=== PATIENT | female | born 1955 | race Caucasian/White ===

== ENCOUNTER 2018-03-03 12:08 | Day surgery (SDC) | END 2018-03-03 16:06 | disposition home or self-care (01) ==

== ENCOUNTER → 2018-03-24 | Outpatient (CLI) | END | disposition home or self-care (01) ==

== ENCOUNTER 2018-07-08 11:42 | Emergency (ER) | payer OTHER ==
[~2018-07-08] VITALS: Wt 70.0 kg
[~2018-07-08 11:42] MED LIST: AMIT50TA3 PO; GABA-526 PO; INSU100C SQ; INSU100I33 SC; LIPA1CAP4 PO; LORAZEPAM PO; ONDA4TAB95 PO; OXCA150T43 PO; TRAZ-111 PO; ZOLP10TA5 PO; [UNRECOGNIZED DRUG - OTHER]
[2018-07-08] MEDS ORDERED: HYDROmorphONE 1 MG/ML SYG IV STA (12:32)
[2018-07-08] MEDS ORDERED: SOD CHLORIDE 0.9% 1,000 ML IV STA (12:32)
--- NOTE | 2018-07-08 12:52 | ERD ---
ER Documentation Chief Complaint Chief Complaint AP, HAS HX PANCREATITIS,SEIZURE X 2 IN MOS, ON KEPPRA HPI 62-year-old female with a history of CRPS, diabetes type 1, chronic pancreatitis, hypertension, GERD, seizures presenting to the ER complaining of generalized body pain that is not controlled with her home morphine and oxycod one. She states that she recently had blood work done by her primary care doctor that showed abnormal results. Her doctor told her that it was probably better if she went to the hospital to address the results. Patient does not have any new complaints today. She states that she has chronic pain that is not well controlled. She complains of confusion and poorly controlled diabetes. 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 She also has a GI doctor that she sees for her chronic pancreatitis and GERD issues. However she feels that her primary care doctor is not coordinating her care with these doctors appropriately. She was also told she had low platelets which has been g oing on for quite some time but she has not been referred to a hammer heater. Her labs that were done recently show hyperglycemia with elevated A1c as well as thrombocytopenia with platelets 124. ROS All systems reviewed and are negative except as per history of present illness. Medications Home Meds Reported Medications Morphine Sulfate* (Ms Contin*) 15 Mg Tablet.sa, 15 MG PO Q12, TAB 07/08/18 Insulin Lispro (Humalog Kwikpen) 200 Unit/1 Ml Insuln.pen, 6 UNIT SQ ACHS H, EA 07/08/18 Zolpidem Tartrate* (Zolpidem Tartrate*) 10 Mg Tablet, 12.5 MG PO QHS PRN for INSOMNIA, #30 TAB 03/03/18 Trazodone Hcl* (Trazodone Hcl*) 50 Mg Tablet, 25 MG PO QHS, #30 TAB 03/03/18 Oxcarbazepine* (Oxcarbazepine*) 150 Mg Tablet, 150 MG PO BID, TAB 03/03/18 Ondansetron Hcl* (Ondansetron Hcl*) 4 Mg Tablet, 4 MG PO Q4H PRN for NAUSEA AND OR VOMITING, TAB 03/03/18 Gabapentin* (Gabapentin*) 600 Mg Tablet, 600 MG PO BID, #60 TAB 03/03/18 Mpbpxk-Yxiyiqcd-Swxexsr* (Allison DR* 12,000) 12,000 L-38,000-60,000 Unit Capsul e.dr, 1 CAP PO WITH MEALS, CAP 03/03/18 Insulin Glargine,Hum.rec.anlog (Basaglar Kwikpen U-100) 100 Unit/1 Ml Insuln.pen, 25 UNIT SC QAM, EA 03/03/18 Amitriptyline Hcl* (Amitriptyline Hcl*) 50 Mg Tablet, 50 MG PO QHS, #30 TAB 03/03/18 Discontinued Reported Medications [Morphin Sulfate] No Conflict Check, 20 MG 03/03/18 [Lorazepam] No Conflict Check, PO 03/03/18 Insulin Lispro (Humalog) 100 Unit/1 Ml Cartridge, 100 UNIT SQ, EA 03/03/18 Allergies Allergies: Coded Allergies: No Known Allergy (Unverified , 07/08/18) PMhx/Soc History of Surgery: Yes (CHOLECYSTECTOMY, CSECTION, 2/3 PANCREAS REMOVAL) Anesthesia Reaction: No Hx Neurological Disorder: Yes (SZ) Hx Respiratory Disorders: No Hx Cardiac Disorders: Yes (HTN) Hx Psychiatric Problems: Yes (INSOMNIA, ANXIETY, DEPRESSION) Hx Miscellaneous Medical Probl: Yes (DM TYPE I, CRPS) Hx Alcohol Use: No Hx Substance Use: No Hx Tobacco Use: No Smoking Status: Never smoker FmHx Family History: No diabetes Physical Exam Vitals Vital Signs Date Temp Pulse Resp B/P (MAP) Pulse Ox O2 O2 Flow FiO2 Time Delivery Rate 07/08/18 97.9 64 16 159/77 99 Room Air 14:55 (104) 07/08/18 97.9 66 16 167/85 99 Room Air 13:54 (112) 07/08/18 97.9 75 18 211/90 99 11:43 (130) Physical Exam Const: No acute distress, nontoxic, well-appearing Head: Atraumatic Eyes: Normal Conjunctiva ENT: Normal External Ears, Nose and Mouth. Neck: Full range of motion. No meningismus. Resp: Clear to auscultation bilaterally Cardio: Regular rate and rhythm, no murmurs. 2+ distal pulses in all 4 extremities Abd: Upper abdominal surgical scar noted, well-healed. Soft, non tender, non distended. Normal bowel sounds Skin: No petechiae or rashes Back: No midline or flank tenderness Ext: No cyanosis, or edema Neur: Awake and alert, oriented x3, no facial asymmetry, moving all extremities spontaneously Psych: Normal Mood and Affect Result Diagram: 07/08/18 1252 07/08/18 1251 Results 24 hrs Laboratory Tests Test 07/08/18 12:51 07/08/18 12:52 07/08/18 13:00 07/08/18 13:58 Prothrombin Time 13.6 Sec Prothrombin Time 1.1 Ratio INR 1.03 International Normalized Ratio Activated 29.9 Sec Partial Thrombop last Time Sodium Level 143 mmol/L Potassium Level 4.2 mmol/L Chloride Level 105 mmol/L Carbon Dioxide 27 mmol/L Level Anion Gap 11 Blood Urea 12 mg/dl Nitrogen Creatinine 0.49 mg/dl Est Glomerular > 60 mL/min Filtrat Rate mL/min Glucose Level 280 mg/dl Calcium Level 9.4 mg/dl Total Bilirubin 0.5 mg/dl Direct Bilirubin 0.00 mg/dl Indirect 0.5 mg/dl Bilirubin Aspartate Amino 45 IU/L Transf (AST/SGOT ) Alanine 37 IU/L Aminotransferase (ALT/SGPT) Alkaline 130 IU/L Phosphatase Troponin I < 0.012 ng/ml Total Protein 7.0 g/dl Albumin 4.2 g/dl Globulin 2.80 g/dl Albumin/Globulin 1.50 Ratio Amylase Level 45 U/L Lipase < 10 U/L Ethyl Alcohol < 10.0 mg/dl Level White Blood 7.0 10^3/ul Count Red Blood Count 5.04 10^6/ul Hemoglobin 14.0 g/dl Hematocrit 43.2 % Mean Corpuscular 85.7 fl Volume Mean Corpuscular 27.8 pg Hemoglobin Mean Corpuscular 32.4 g/dl Hemoglobin Maribel nt Red Cell 13.0 % Distribution Width Platelet Count 127 10^3/UL Mean Platelet 10.8 fl Volume Immature 0.400 % Granulocytes % Neutrophils % 75.3 % Lymphocytes % 16.5 % Monocytes % 6.5 % Eosinophils % 1.0 % Basophils % 0.3 % Nucleated Red 0.0 /100WBC Blood Cells % Immature 0.030 10^3/ul Granulocytes # Neutrophils # 5.2 10^3/ul Lymphocytes # 1.2 10^3/ul Monocytes # 0.5 10^3/ul Eosinophils # 0.1 10^3/ul Basophils # 0.0 10^3/ul Nucleated Red 0.0 10^3/ul Blood Cells # Urine Color YELLOW Urine Clarity CLEAR Urine pH 5.0 Urine Specific 1.030 [place] Urine Ketones 1+ mg/dL Urine Nitrite NEGATIVE mg/dL Urine Bilirubin NEGATIVE mg/dL Urine NEGATIVE mg/dL Urobilinogen Urine Leukocyte NEGATIVE Kavon/ul Esterase Urine Hemoglobin NEGATIVE mg/dL Urine Glucose 3+ mg/dL Urine Total NEGATIVE mg/dl Protein Urine Opiates Positive Screen Urine Negative Barbiturates Urine Negative Amphetamines Screen Urine Negative Benzodiazepines Screen Urine Cocaine Negative Screen Urine Negative Cannabinoids Bedside Glucose 244 mg/dL Blood Gas Blood venous Specimen Source Arterial Blood 07/08/2018 2:10:0 Date Drawn 0 PM Arterial Blood VENOUS LINE Gas Puncture Site Casey Test N/A Venous Blood pH 7.387 Venous Blood 37.7 mmHG pCO2 (Temp Corrected) Venous Blood pO2 38.4 mmHG (Temp Corrected) Venous Blood 22.2 mmol/L HCO3 Venous Blood 71.8 mmHG Oxygen Saturation Venous Blood -2.5 mmol/L Base Excess Venous Blood 12.5 g/dl Total Hemoglobin Venous Blood 70.4 % Oxyhemoglobin Venous Blood 0.2 % Methemoglobin Carboxyhemoglobi 1.7 % n Blood Gas 37.0 C Temperature Blood Gas ROOM AIR Modality FiO2 21.0 % Blood Gas KS Notified Whom Blood Gas 07/08/2018 2:26:2 Notified Time 8 PM Current Medications Medications Dose Sig/Haris Start Time Status Last (Trade) Ordered Route PRN Stop Time Admin Dose Reason Admin Sodium 1,000 ml @ Q1H STAT 07/08/18 DC 07/08/18 Chloride 1,000 mls/hr IV 12:32 07/08/18 13:09 13:31 1 mg ONCE STAT 07/08/18 DC 07/08/18 Hydromorphone IV 12:32 07/08/18 13:09 HCl 12:34 (Dilaudid) Procedures/MDM EMERGENT LABS AND DIAGNOSTIC STUDIES: Lab Results above were reviewed and interpreted by me. CBC: Mild thrombocytopenia, chronic, unclear etiology CMP: Hyperglycemic without evidence of acidosis. No evidence of electrolyte abnormality, renal failure, hypoglycemia, liver failure, or biliary obstruction Lipase: no evidence of pancreatitis Troponin within normal limits, not indicative of cardiac ischemia UA: Ketones and glucose noted VBG with normal pH, no evidence of acidosis or alkalosis Drug screen positive for opiates only 12-lead EKG was interpreted by Maryann Marin MD: Normal Sinus Rhythm Normal axis Normal intervals No acute ST or T wave changes suggestive of acute ischemia or STEMI. Initial Nursing notes reviewed. Previous Medical Records requested via the Electronic Health Record. EMERGENCY DEPARTMENT COURSE / MEDICAL DECISION MAKING: Patient is presenting with complaints of worsening generalized body pain with abnormal blood test results recently. Vitals were notable for hypertension which improved without intervention. Her labs did show evidence of ketones in her urine and uncontrolled diabetes, but she does not have any signs of DKA. She does have chronic thrombocytopenia that has not been worked up but is not worse than her baseline level. I reassured the patient that there is nothing acute today or emergent that requires admission to the hospital. But I did recommend follow-up with her primary care doctor, chronic pain specialist, hematology, and endocrinology. I also recommended follow-up with her psychiatrist as she has not been on psychiatric medications for several months. Patient's blood pressure was elevated (>120/80) but appears stable without evidence of hypertensive emergency or urgency. The patient was counseled about the risks of hypertension and urged to pursue outpatient monitoring and therapy within a week with their primary care physician. Departure Diagnosis: Primary Impression: Chronic pain syndrome Additional Impressions: Uncontrolled diabetes mellitus Diabetes mellitus type: type 1 Glycemic state: with hyperglycemia Qualified Codes: E10.65 - Type 1 diabetes mellitus with hyperglycemia Thrombocytopenia Uncontrolled hypertension Condition: Stable GISELLE MARIN MD Jul 08, 2018 12:52
[2018-07-08] MEDS ORDERED: INSU200I SQ (13:11)
[2018-07-08] MEDS ORDERED: MORP15TA92 PO (13:12)
[2018-07-08 14:55] VITALS: BP 159/77; PULSE 64; RESP 16
== END 2018-07-08 14:59 | disposition home or self-care (01) ==
LOC: E/R 11:42
DX: G89.4 Chronic pain syndrome (principal); E10.65 Type 1 diabetes mellitus with hyperglycemia; D69.6 Thrombocytopenia, unspecified; I10 Essential (primary) hypertension; Z79.4 Long term (current) use of insulin
CPT/HCPCS: 36415; 80053; 80307; 81003; 82150; 82803; 82962; 83690; 84484; 85025; 85610; 85730; 93005; 96374; J1170; J7030; Z7502

== ENCOUNTER 2019-03-22 08:00 | Day surgery (SDC) | payer OTHER ==
[~2019-03-22] VITALS: Ht 165.1 cm; Wt 75.4 kg
[~2019-03-22 08:00] MED LIST changes: +AMLO5TAB4 PO; +AMLODIPINE; +CLON0.2T5 BC; +CLONIDINE; +DOCU250C58 PO; +INSU200I SQ; +LANTUS; -LORAZEPAM PO; +LOSA50TA14 PO; +LOSARTAN; +MELO15TA30 PO; +MELOXICAM; +MORP-53 ORAL; +MORP15TA92 PO; +OMEG1CAP17 PO; +OMEG1CAP90 ORAL; +OXYC-431 PO; +OXYC5CAP17 PO; +PANT40TA4 ORAL; +PANTOPRAZOLE; +PRILOSEC; +PROP20TA4 PO; +PROP40TA4 ORAL; +PROP40TA4 PO; +PROPRANOLOL; +SUCR1TAB56 PO; +SUCRALFATE; +SULF1TAB31 PO; +TRAZ-188 PO; +TRAZODONE; +[UNRECOGNIZED DRUG - OTHER]; -[UNRECOGNIZED DRUG - OTHER]
[2019-03-22 11:51] VITALS: Ht 165.1 cm; Wt 75.4 kg
[2019-03-22 12:03] VITALS: BP 213/108; PULSE 91; RESP 16
[2019-03-22] MEDS ORDERED: PROPOFOL 60 ML ONE (13:43)
[2019-03-22] MEDS ORDERED: LIDOCAINE 100 MG SYRINGE ONE (13:43)
[2019-03-22] MEDS ORDERED: GLYCOPYRROLATE 0.4 MG INJ ONE (13:46)
[2019-03-22] MEDS ORDERED: PROPOFOL 200 MG INJ ONE (13:46)
[2019-03-22 14:30] VITALS: BP 183/84; PULSE 78; RESP 16
== END 2019-03-22 16:17 | disposition home or self-care (01) ==
LOC: GIL 08:00
PROVIDERS: ATTEND Internal Medicine Gastroenterology
DX: K44.9 Diaphragmatic hernia without obstruction or gangrene (principal); I85.00 Esophageal varices without bleeding; E11.9 Type 2 diabetes mellitus without complications; I10 Essential (primary) hypertension; G40.909 Epilepsy, unspecified, not intractable, without status epilepticus; Z79.4 Long term (current) use of insulin
CPT/HCPCS: 43239; 80053; 82962; 85025; 85610; 85730; J2001; Z7610; 88305; 88312

== ENCOUNTER 2019-05-03 14:51 | Inpatient (IN) | payer OTHER ==
[~2019-05-03] VITALS: Ht 165.1 cm; Wt 75.7 kg
[~2019-05-03 14:51] MED LIST changes: -AMLODIPINE; -CLONIDINE; -DOCU250C58 PO; -INSU200I SQ; -LANTUS; -LIPA1CAP4 PO; -LOSARTAN; -MELOXICAM; -MORP-53 ORAL; -OMEG1CAP17 PO; -OMEG1CAP90 ORAL; -ONDA4TAB95 PO; -OXCA150T43 PO; -PANT40TA4 ORAL; -PANTOPRAZOLE; -PRILOSEC; -PROP40TA4 ORAL; -PROP40TA4 PO; -PROPRANOLOL; -SUCRALFATE; -TRAZ-111 PO; -TRAZODONE; -[UNRECOGNIZED DRUG - OTHER]
[2019-05-03] MEDS ORDERED: SOD CHLORIDE 0.9% 1,000 ML IV ONE (15:30)
[2019-05-03] MEDS ORDERED: LACTATED RINGER'S 1,000 ML IV STA (16:58)
[2019-05-03] MEDS ORDERED: ONDANSETRON 4 MG INJ IV PRN ×2 (17:00→17:30)
[2019-05-03] MEDS ORDERED: ACETAMINOPHEN 325 MG TAB PO PRN (17:00)
[2019-05-03] MEDS ORDERED: NACL 0.9% 3 ML SYG IV SCH (17:30)
[2019-05-03] MEDS ORDERED: OXYCODONE/ACETAMINOPHEN (10/325) TAB PO PRN (17:30)
[2019-05-03] MEDS ORDERED: DEXTROSE 50% 50 ML SYRINGE IV PRN ×2 (18:00)
[2019-05-03] MEDS ORDERED: GLUCAGON 1 MG INJ IM PRN (18:00)
[2019-05-03] MEDS ORDERED: GLUCOSE GEL 15 GRAM TUBE PO PRN ×2 (18:00)
[2019-05-03] MEDS ORDERED: GLUCOSE GEL 15 GRAM TUBE BUCCAL PRN (18:00)
[2019-05-03] MEDS: SOD CHLORIDE 0.9% 1,000 ML IV SCH (19:27)
[2019-05-03] MEDS: INSULIN ASPART [NOVOLOG] 3 ML PEN SC SCH ×2 (19:59→21:00)
[2019-05-03] MEDS ORDERED: INSULIN GLARGINE [LANTus] (100 UNITS/ML) SYG SC SCH (20:00)
[2019-05-03] MEDS: oxyCODONE 5 MG TAB PO PRN (20:01)
[2019-05-03 20:47] VITALS: BP 111/56; PULSE 61; RESP 18
[2019-05-03 21:10] VITALS: Ht 165.1 cm; Wt 75.7 kg
[2019-05-03] MEDS: TRIMETHOPRIM/SULFAMETHOX (DS) TAB PO SCH (21:29)
[2019-05-03] MEDS: traZODone 50 MG TAB PO SCH (21:30)
[2019-05-03] MEDS: morphine (ER) 15 MG TAB PO SCH (21:30)
[2019-05-03] MEDS: AMITRIPTYLINE 50 MG TAB PO SCH (21:30)
[2019-05-03] MEDS: ZOLPIDEM 5 MG TAB PO PRN (23:47)
[2019-05-04] MEDS: ACCU-CHEK XX SCH (02:00)
[2019-05-04 02:50] VITALS: BP 105/55; PULSE 61; RESP 16
[2019-05-04] MEDS: SOD CHLORIDE 0.9% 1,000 ML IV SCH ×2 (05:38→08:39)
[2019-05-04] MEDS ORDERED: POTASSIUM CHLORIDE 20 MEQ POWDER FOR ORAL SOLN PO ONE (08:00)
[2019-05-04 08:27] VITALS: BP 101/46; PULSE 73; RESP 16
[2019-05-04] MEDS: SUCRALFATE 1 GM TAB PO SCH (08:35)
[2019-05-04] MEDS: TRIMETHOPRIM/SULFAMETHOX (DS) TAB PO SCH (08:35)
[2019-05-04] MEDS: morphine (ER) 15 MG TAB PO SCH ×2 (08:35→20:38)
[2019-05-04] MEDS: MELOXICAM 15 MG TAB PO SCH (08:35)
[2019-05-04] MEDS: GABAPENTIN 300 MG CAP PO SCH (08:35)
[2019-05-04] MEDS: INSULIN ASPART [NOVOLOG] 3 ML PEN SC SCH ×4 (08:36→20:39)
[2019-05-04] MEDS: oxyCODONE 5 MG TAB PO PRN ×2 (12:13→18:24)
[2019-05-04 15:06] VITALS: BP 131/65; PULSE 85; RESP 18
[2019-05-04 20:00] VITALS: BP 134/75; PULSE 92; RESP 17
[2019-05-04] MEDS: traZODone 50 MG TAB PO SCH (20:38)
[2019-05-04] MEDS: AMITRIPTYLINE 50 MG TAB PO SCH (20:38)
[2019-05-04] MEDS: INSULIN GLARGINE [LANTus] (100 UNITS/ML) SYG SC SCH (20:43)
[2019-05-04] MEDS: ZOLPIDEM 5 MG TAB PO PRN (22:29)
[2019-05-05 02:00] VITALS: BP 136/92; PULSE 111; RESP 18
[2019-05-05] MEDS: ACCU-CHEK XX SCH (02:00)
[2019-05-05 03:00] VITALS: PULSE 96
[2019-05-05 08:00] VITALS: BP 140/83; PULSE 90; RESP 20
[2019-05-05] MEDS: morphine (ER) 15 MG TAB PO SCH ×2 (08:45→22:01)
[2019-05-05] MEDS: GABAPENTIN 300 MG CAP PO SCH (08:45)
[2019-05-05] MEDS: SUCRALFATE 1 GM TAB PO SCH (08:49)
[2019-05-05] MEDS: MELOXICAM 15 MG TAB PO SCH (08:49)
[2019-05-05] MEDS: INSULIN ASPART [NOVOLOG] 3 ML PEN SC SCH ×4 (09:04→20:52)
[2019-05-05] MEDS: SOD CHLORIDE 0.9% 1,000 ML IV SCH (09:18)
[2019-05-05] MEDS: oxyCODONE 5 MG TAB PO PRN ×3 (09:24→20:45)
[2019-05-05 14:00] VITALS: BP 156/70; PULSE 86; RESP 18
[2019-05-05] MEDS ORDERED: MAGNESIUM SULFATE 2 GM/50 ML 50 ML IVPB ONE (14:30)
[2019-05-05] MEDS ORDERED: POTASSIUM CHLORIDE 20 MEQ POWDER FOR ORAL SOLN PO ONE (14:30)
[2019-05-05 20:00] VITALS: BP 162/77; PULSE 94; RESP 18
[2019-05-05] MEDS: INSULIN GLARGINE [LANTus] (100 UNITS/ML) SYG SC SCH (20:47)
[2019-05-05] MEDS: AMITRIPTYLINE 50 MG TAB PO SCH (20:52)
[2019-05-05] MEDS: traZODone 50 MG TAB PO SCH (20:54)
[2019-05-05] MEDS: PROPRANOLOL 20 MG TAB PO SCH (21:58)
[2019-05-05] MEDS: ZOLPIDEM 5 MG TAB PO PRN (21:59)
[2019-05-06 02:00] VITALS: BP 120/76; PULSE 85; RESP 18
[2019-05-06] MEDS: ACCU-CHEK XX SCH (02:00)
[2019-05-06] MEDS: oxyCODONE 5 MG TAB PO PRN ×4 (04:15→22:09)
[2019-05-06 08:00] VITALS: BP 138/87; PULSE 84; RESP 20
[2019-05-06] MEDS: MELOXICAM 15 MG TAB PO SCH (08:37)
[2019-05-06] MEDS: GABAPENTIN 300 MG CAP PO SCH (08:37)
[2019-05-06] MEDS: AMLODIPINE 5 MG TAB PO SCH (08:38)
[2019-05-06] MEDS: INSULIN ASPART [NOVOLOG] 3 ML PEN SC SCH ×4 (08:39→20:15)
[2019-05-06] MEDS: SUCRALFATE 1 GM TAB PO SCH (08:42)
[2019-05-06] MEDS: PROPRANOLOL 20 MG TAB PO SCH ×3 (08:43→20:12)
[2019-05-06] MEDS: LOSARTAN 50 MG TAB PO SCH (08:44)
[2019-05-06] MEDS: morphine (ER) 15 MG TAB PO SCH ×2 (09:29→20:13)
[2019-05-06 14:00] VITALS: BP 118/61; PULSE 74; RESP 20
[2019-05-06 20:08] VITALS: BP 146/95; PULSE 84; RESP 18
[2019-05-06] MEDS: traZODone 50 MG TAB PO SCH (20:11)
[2019-05-06] MEDS: AMITRIPTYLINE 50 MG TAB PO SCH (20:12)
[2019-05-06] MEDS: INSULIN GLARGINE [LANTus] (100 UNITS/ML) SYG SC SCH (20:14)
[2019-05-06] MEDS: ZOLPIDEM 5 MG TAB PO PRN (22:09)
[2019-05-07] MEDS: ACCU-CHEK XX SCH (02:00)
[2019-05-07 02:05] VITALS: BP 116/61; PULSE 69; RESP 17
[2019-05-07] MEDS: oxyCODONE 5 MG TAB PO PRN ×2 (02:15→14:23)
[2019-05-07] MEDS: INSULIN ASPART [NOVOLOG] 3 ML PEN SC SCH ×3 (08:00→17:32)
[2019-05-07 08:25] VITALS: BP 135/83; PULSE 68; RESP 19
[2019-05-07] MEDS: SUCRALFATE 1 GM TAB PO SCH (08:36)
[2019-05-07] MEDS: GABAPENTIN 300 MG CAP PO SCH (08:36)
[2019-05-07] MEDS: morphine (ER) 15 MG TAB PO SCH (08:37)
[2019-05-07] MEDS: MELOXICAM 15 MG TAB PO SCH (08:37)
[2019-05-07] MEDS: PROPRANOLOL 20 MG TAB PO SCH ×2 (08:38→14:24)
[2019-05-07] MEDS: LOSARTAN 50 MG TAB PO SCH (08:38)
[2019-05-07] MEDS: AMLODIPINE 5 MG TAB PO SCH (08:40)
[2019-05-07 14:36] VITALS: BP 117/72; PULSE 68; RESP 19
== END 2019-05-07 18:17 | disposition home or self-care (01) | DRG 641 ==
LOC: E/R 14:51 → 5EC 16:47 → SUATTDRO 16:51
PROVIDERS: ADMIT Internal Medicine; ATTEND Internal Medicine
DX: E86.0 Dehydration (principal); N39.0 Urinary tract infection, site not specified; R53.1 Weakness; D69.6 Thrombocytopenia, unspecified; R56.9 Unspecified convulsions; I10 Essential (primary) hypertension; F41.9 Anxiety disorder, unspecified; F32.9 Major depressive disorder, single episode, unspecified; E11.9 Type 2 diabetes mellitus without complications; Z79.4 Long term (current) use of insulin; M54.5 Low back pain; G40.909 Epilepsy, unspecified, not intractable, without status epilepticus
CPT/HCPCS: 36415; 71045; 72156; 72157; 72158; 80048; 80053; 80061; 81001; 82803; 82962; 83036; 83735; 84100; 84443; 84484; 85025; 93005; 97110; 97116; 97161; 97530; J1815; J2405; J3475; J7030; J7120